=== PATIENT | male | born 1995 | race Caucasian/White ===

== ENCOUNTER 2018-04-21 07:58 | Observation (INO) | payer SELFPAY ==
--- NOTE | 2018-04-21 09:23 | ED ---
GI/ HPI - HPI Summary HPI Summary: Patient presents with bleeding during bowel movement 2 times this morning. He reports he woke with urgent lower abdominal pain and cramping and urgency to move his bowels. When he went to the bathroom, he had diarrhea with blood in the toilet, on the stool and as he wiped. He reports this was light in color. He had a second episode a few hours later of urgency but this time no stool emerged, just scant blood. He reports he had relief of his lower abdominal cramping both times with bowel movements and no focal rectal pain/pressure/ burning/tearing with either bowel movement. No trauma to the area (ie. denies sexual activity or other injuries to area). Denies fever, chills, nausea, vomiting, dysuria, flank pain, testicular pain or swelling. He does struggle with "heart burn", sometimes to the point of vomiting - reports this is worse when he eats [employer], pizza and when he smokes weed. When asked if he's eaten anything different or possibly undercooked, etc he replies "I ate a lot of pizza last night". Also admits he's been struggling with dental pain and per nursing, he stated taking 4,000mg of ASA for past few weeks to help w/ pain. Denies h/o diarrhea or abnormal bowel movements. No personal or fam hx of Crohn 's, UC, IBS, colon/gastric cancer. 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 Pain Intensity: 5 - Allergy/Home Medications Allergies/Adverse Reactions: Allergies Allergy/AdvReac Type Severity Reaction Status Date / Time Fish Containing Products Allergy Vomiting Verified 04/21/18 08:54 Home Medications: Home Medications Aspirin [Aspirin EC] 500 mg PO BID PRN 04/21/18 [History Confirmed 04/21/18] PMH/Surg Hx/FS Hx/Imm Hx Previously Healthy: Yes Endocrine/Hematology History: Denies: Hx Anticoagulant Therapy - large amounts of ASA , Hx Blood Disorders , Hx Unexplained Bleeding, Autoimmune Disease GI History: Reports: Hx Gastroesophageal Reflux Disease - untx'd Denies: Hx Cirrhosis, Hx Crohn's Disease, Hx Diverticulosis, Hx Gall Bladder Disease, Hx Gastrointestinal Bleed, Hx Hiatal Hernia, Hx Irritable Bowel, Hx Obstructive Bowel, Hx Ulcer Infectious Disease History: No Infectious Disease History: Denies: Traveled Outside the [place] in Last 30 Days - Family History Known Family History: Positive: None - Social History Occupation: Employed Full-time - just started new job last week Alcohol Use: Occasionally Substance Use Type: Reports: Marijuana Hx Tobacco Use: Yes Smoking Status (MU): Current Every Day Smoker Review of Systems Constitutional: Negative Negative: Fever, Chills, Fatigue Positive: Dental Pain Negative: Chest Pain Negative: Shortness Of Breath Gastrointestinal: Other - no pain or nausea currently Genitourinary: Negative Musculoskeletal: Negative Skin: Negative Neurological: Negative Negative: Headache Psychological: Normal All Other Systems Reviewed And Are Negative: Yes Physical Exam Triage Information Reviewed: Yes Vital Signs On Initial Exam: Initial Vitals Temp Pulse Resp BP Pulse Ox 98.8 F 85 16 127/68 99 04/21/18 07:59 04/21/18 07:59 04/21/18 07:59 04/21/18 07:59 04/21/18 07:59 Vital Signs Reviewed: Yes Appearance: Positive: Well-Appearing, No Pain Distress, Well-Nourished Skin: Positive: Warm, Skin Color Reflects Adequate Perfusion, Dry - no ecchymosis Head/Face: Positive: Other - appears to be s/p cleft palate repair Eyes: Positive: Normal, EOMI, Conjunctiva Clear - anicteric sclera ENT: Positive: Normal ENT inspection, Hearing grossly normal. Negative: Pharynx normal - appears to have erythematous marbling along palate - no cj edema/lesions, Nasal congestion Neck: Positive: Supple, Nontender, No Lymphadenopathy Respiratory/Lung Sounds: Positive: Clear to Auscultation, Breath Sounds Present Cardiovascular: Positive: Normal, RRR Abdomen Description: Positive: Nontender, No Organomegaly, Soft, Other: - rectal exam: external - no hemorrhoids or blood visualized; internal - 2 flecks of stools - no melena or blood observed - NTTP Bowel Sounds: Positive: Present Musculoskeletal: Positive: Normal, Strength/ROM Intact Neurological: Positive: Normal, Sensory/Motor Intact, Alert, Oriented to Person Place, Time, CN Intact II-III Psychiatric: Positive: Normal Diagnostics - Vital Signs Vital Signs Temp Pulse Resp BP Pulse Ox 04/21/18 08:54 82 100 04/21/18 08:53 76 136/90 100 04/21/18 07:59 98.8 F 85 16 127/68 99 - Laboratory Result Diagrams: 04/21/18 09:41 04/21/18 09:42 Lab Statement: Any lab studies that have been ordered have been reviewed, and results considered in the medical decision making process. GIGU Course/Dx - Course Course Of Treatment: CT: "There is focal wall thickening in the descending colon with contrast extending through the area of the wall thickening suspicious for an ulcerated mass possibly secondary to Crohn's colitis although nonspecific. Recommend colonoscopy for further evaluation" malignancy was also discussed as a possibility. Discussed w/ Dr. Calderon who agrees to consult on pt upon admission and perform colonoscopy tomorrow to better evaluate pt's findings as he's also concerned about IBD vs. malignancy. Labs and vitals are stable and unremarkable for inflammation (normal CRP, WBC and ESR). Pt is stable and comfortable at time of transition of care. - Diagnoses Provider Diagnoses: Colonic thickening, Hematochezia Discharge - Sign-Out/Discharge Documenting (check all that apply): Patient Departure - Discharge Plan Condition: Stable Disposition: ADMITTED TO [facility] - Billing Disposition and Condition Condition: STABLE Disposition: [facility]
[2018-04-21 09:51] LABS: ABS Basophils 0 10^3/ul (0-0.2); ABS Eosinophils 0.2 10^3/ul (0-0.6); ABS Lymphocytes 2.4 10^3/ul (1.0-4.8); ABS Monocytes 0.9 10^3/ul (0-0.8); ABS Neutrophils 7.3 10^3/ul (1.5-7.7); ABS Nucleated RBC 0 10^3/ul; Eosinophil % 1.5 % (0-6); Hematocrit 45 % (42-52); Hemoglobin 15.8 g/dl (14.0-18.0); Lymphocyte % 22.3 % (25-47); Mean Corpuscular HGB Conc 35 g/dl (31-36); Mean Corpuscular Hemoglobin 31 pg (27-31); Mean Corpuscular Volume 88 fL (80-94); Mean Platelet Volume 8.2 um3 (7.4-10.4); Nucleated Red Blood Cells % 0.1; Platelet Count 240 10^3/ul (150-450); Red Blood Count 5.13 10^6/ul (4.00-5.40); Red Cell Distribution Width 13 % (10.5-15); White Blood Count 10.8 10^3/ul (3.5-10.8)
[2018-04-21 10:09] LABS: EGFR Non-African American 110.7 (>60)
[2018-04-21 10:12] LABS: INR 1.07 (0.77-1.02)
[2018-04-21] MEDS ORDERED: Iohexol 300* (CONTRAST) 10 ML SDV IV ONE (10:36)
--- NOTE | 2018-04-21 12:34 | RAD ---
INDICATION: Lower abdominal pain with hematochezia. COMPARISON: There are no prior studies available for comparison. TECHNIQUE: A CT scan of the abdomen and pelvis was performed with intravenous and with oral contrast following intravenous injection of 72 ml of Omnipaque 300 nonionic contrast. Contiguous axial sections were obtained from the lung bases through the symphysis pubis. Images were reconstructed in the coronal and sagittal planes. FINDINGS: The lung bases are clear. No pleural effusion is present. The liver and spleen are within normal limits in size without significant focal abnormality. No calcified gallstones are seen. The pancreas appears to be within normal limits in size. The kidneys and adrenal glands are normal in size. No hydronephrosis is seen. There is a 1.4 x 1.7 cm cyst present in the midportion of the right kidney. The aorta is normal in caliber and demonstrates homogeneous contrast opacification. No significant enlarged retroperitoneal lymph nodes are seen. The stomach, small and large bowel appear nondistended. The appendix is within normal limits. There is a focal area of thickening of the wall of the distal portion of the descending colon with narrowing of the lumen and with extension of contrast through the thickened wall area raising the possibility of an ulcerated mass. No free intraperitoneal air or fluid is seen. No significant focal osseous abnormality is seen. The results of this exam were discussed with the referring clinician. IMPRESSION: THERE IS FOCAL WALL THICKENING IN THE DESCENDING COLON WITH CONTRAST EXTENDING THROUGH THE AREA OF WALL THICKENING SUSPICIOUS FOR AN ULCERATED MASS POSSIBLY SECONDARY TO CROHN'S COLITIS ALTHOUGH NONSPECIFIC. RECOMMEND COLONOSCOPY FOR FURTHER EVALUATION.
[2018-04-21] MEDS ORDERED: PEG 3000 GI LAVAGE* 1 GALLON PO ONE (15:15)
--- NOTE | 2018-04-21 15:55 | CONS ---
CONSULTATION REPORT: DATE OF CONSULT: 04/21/18 REQUESTING PHYSICIAN: ZOE Childers, in the emergency room. INDICATION: Abnormal finding on abdomen and pelvis CT. NARRATIVE: Mr. Hackett is a 22-year-old gentleman with no real past medical history. He does have some dental pain that he takes aspirin for and was feeling perfectly fine up until this morning. This morning, he developed generalized abdominal pain, it was colicky, it was fairly severe, brought him to the emergency room. Currently, he is pain free. He states that he feels wonderful right now. He denies any nausea, vomiting, fevers, chills. No unintentional weight loss. No change in his bowel habits. No diarrhea. No constipation. No blood in the stool. No family history of IBD or colorectal malignancies. He did have a CT abdomen and pelvis in the emergency room, which revealed focal wall thickening of the descending colon, Crohn's versus a mass. He again states that he feels perfectly fine right now. He is questioning whether or not he wants to go home. He does take aspirin for dental pain; this has been over the past few days. He again denies any blood in the stool. No unintentional weight loss. No family history of IBD or colorectal cancer. PAST MEDICAL HISTORY: None. PAST SURGICAL HISTORY: Include facial surgery for cleft palate. MEDICATIONS: On a regular basis, aspirin. ALLERGIES: To FISH-CONTAINING PRODUCTS. FAMILY HISTORY: No IBD, no colorectal cancer in the family. REVIEW OF SYSTEMS: Twelve systems were reviewed; other than that mentioned in the HPI were unremarkable. PHYSICAL EXAM: Temperature is 98.2, blood pressure is 134/85, pulse is 76, O2 sat is 98%. General: Well-appearing male, in no apparent distress. Alert, oriented, pleasant, fluent. HEENT: Pupils are equal, round, and reactive to light. Mucous membranes are moist without lesions, ulcers, or exudate. Neck is supple. Trachea is midline. Dentition is poor. Skin is warm and dry. Tattoo on his neck. Heart: Regular rate and rhythm. No murmurs, rubs, or gallops. Lungs: Clear to auscultation bilaterally. No wheezes, rales, or rhonchi. Abdomen: Positive bowel sounds. Soft, nontender, nondistended. No hepatosplenomegaly, masses, rebound, or guarding. Lymph: No supraclavicular or cervical lymphadenopathy. DIAGNOSTIC STUDIES/LAB DATA: Of note, white count was 10.8, hemoglobin 15.8, platelets are 240. ESR is 7. INR is 1.07. Sodium is 139, BUN 10, creatinine 0.85. LFTs are within normal limits. Sed rate is 7. INR is 1.07. CT, please see the HPI. ASSESSMENT AND PLAN: A 22-year-old male admitted with abdominal pain that is resolved. On a CT finding, it is suspicious for either an inflammatory mass versus malignancy. He really did not have any preceding symptoms, which would make me consider Crohn's or an IBD high in the differential. Given his age, malignancy is less likely, but not unheard of. I think at this point the patient does need a colonoscopy. I had a long discussion with the patient and his mother regarding this. He is slightly hesitant to stay and is asking what would happen if he did nothing about all this. I had a very long discussion with both of them regarding our concerns about what this potentially could be and what could happen in the future, especially catastrophe of something catastrophic if he does not address this. At this point, he is willing to stay. He should have clear liquid diet at this point. He should have 4 L of GoLYTELY, 3 L tonight, 1 L tomorrow morning. He should be n.p.o. after midnight. He will have a colonoscopy tomorrow. [id number]/[facility] #: [id number] MTDD
[2018-04-21] MEDS ORDERED: Mouth Piece, Nicotine* 1 EACH CARTRIDGE INH PRN (16:56)
[2018-04-21] MEDS: Nicotine Inhaler* 10 MG AMP INH PRN ×2 (17:10→19:45)
[2018-04-21] MEDS ORDERED: Acetaminophen TAB* 325 MG PO PRN (18:07)
--- NOTE | 2018-04-21 21:46 | HP ---
HISTORY AND PHYSICAL: DATE OF ADMISSION: 04/21/18 - ROOM #419 ADMITTING PROVIDER: Sanjeev Mcgee MD PRIMARY CARE PHYSICIAN: None. CHIEF COMPLAINT: Acute onset, 10/10 abdominal pain with diarrhea and blood. HISTORY OF PRESENT ILLNESS: Ajay Hackett is a 22-year-old male, current smoker 5- pack years who was in his usual state of health until morning of admission when he slowly developed 10/10 pain in his lower quadrants of his abdomen associated with diarrhea and then some blood in his stools, which he describes as "not a large amount." He denies past medical history. He denies fevers, chills, weight loss, nausea, vomiting. He had intermittent bloating sensation today. He has been taking approximately 3500 mg of aspirin for the last 2 days for a dental pain and what he thinks is a dental infection. He does not have any insurance. No PCP. He has not been able to see a dentist due to lack of insurance and financial contraints . In the emergency room, he had a CT of his abdomen and pelvis, which was concerning for focal wall thickening in the descending colon with contrast extending to the area of wall thickening suspicious for an ulcerated mass, possibly secondary to Crohn's colitis, although nonspecific and recommendation for colonoscopy. Dr. Calderon of GI was consulted by emergency room and he was referred to hospitalist service for admission. He is otherwise now without abdominal pain, stable with lab work that is not concerning. He has ESR of 7 and INR of 1.07. White count of 10.8, lipase of 13, normal LFTs. No lactic acidosis. He is afebrile. PAST MEDICAL HISTORY: Current smoker, 5-pack years, 1 pack per day; intermittent alcohol use of a small bottle of Woody Watson twice a month; marijuana use; history of cleft palate and lip repair as a . MEDICATIONS: Aspirin 500 mg, he has taken 7 over the last 2 days. ALLERGIES: He has allergies to FISH-CONTAINING PRODUCTS. SOCIAL HISTORY: The patient is 1 pack per day smoker. Alcohol use, socially 1 "smallest" bottle of Woody Watson twice a month. He smokes marijuana. His significant other, Harlan Barrientos, is requested to be his next of kin. He works at [employer]. He desires to be Full code. FAMILY HISTORY: His dad of a gunshot wound at age 41. His mother is alive , is a "pill addict" and may have cervical cancer. She is alive at age 41. PHYSICAL EXAMINATION GENERAL APPEARANCE: No acute distress. VITAL SIGNS: Temperature 98.5, pulse rate 91, respiratory rate 16, satting 99% , blood pressure 134/85. HEENT: Normocephalic, atraumatic. Pupils are equal, round, and reactive to light. Dentition quite poor. Extraocular motions are intact. NECK: No cervical lymphadenopathy. PULMONARY: Clear to auscultation bilaterally with no wheezing, rales, or rhonchi. CARDIOVASCULAR: Regular rate and rhythm. No murmurs, rubs, or gallops. ABDOMEN: Soft, nontender, nondistended. No rebound. No guarding. EXTREMITIES: Warm, well perfused. No peripheral edema. SKIN: No lesions. No rashes. DIAGNOSTIC STUDIES/LAB DATA: White count 10.8, hemoglobin 15.8, hematocrit 45 , platelets 240. ESR 7. INR 1.07. Sodium 139, potassium 3.8, chloride 106, carbon dioxide 26, BUN 10, creatinine 0.85, glucose 95, magnesium 2.0. Total bili is 0.30, AST 15, ALT 9, alk phos 61. CRP 1.44, albumin 4.4, lipase 13. CT abdomen and pelvis with impression of just focal wall thickening of the descending colon with contrast extending to the area of wall thickening suspicious for an ulcerated mass, possibly secondary to Crohn's colitis, although nonspecific, recommended colonoscopy for further evaluation. ASSESSMENT AND PLAN: Ajay Hackett is a 22-year-old male, current smoker and taking large doses of aspirin over the last 2 days up to 3.5 g daily. We appreciate the consultation services of Dr. Calderon. We are prepping him for a colonoscopy tomorrow with concerns to rule out Crohn's colitis or other malignancy. Of note his significant other had to convince him to stay for admission. No known familial history of colon cancer, but he does not have firm grasp on her mother's past medical history given her drug addiction and father at age 41 of a gunshot wound. Notably, I am going to add a salicylate level given his recent large doses of aspirin, which can result in some diarrhea. His lab work is otherwise stable with some slight coagulopathy with INR of 1.07. We will try to control his dental pain with tramadol in the interim. He is getting 2 L of GoLYTELY now. He can eat a clear liquid diet until midnight n.p.o. and another 1 L of GoLYTELY in the morning. He desires to be a full code. Medical surrogate is next of kin, who is his girlfriend, Harlan Barrientos. He is being admitted to observation status. We will put him on telemetry given the GI bleed. [id number]/[facility] #: [id number] LESTER
[2018-04-22] MEDS ORDERED: PEG 3000 GI LAVAGE* 1 GALLON PO ONE (06:00)
[2018-04-22 06:56] LABS: ABS Basophils 0 10^3/ul (0-0.2); ABS Eosinophils 0.2 10^3/ul (0-0.6); ABS Lymphocytes 2.6 10^3/ul (1.0-4.8); ABS Monocytes 1.1 10^3/ul (0-0.8); ABS Neutrophils 9.1 10^3/ul (1.5-7.7); ABS Nucleated RBC 0 10^3/ul; Eosinophil % 1.3 % (0-6); Hematocrit 46 % (42-52); Hemoglobin 15.8 g/dl (14.0-18.0); Lymphocyte % 19.6 % (25-47); Mean Corpuscular HGB Conc 34 g/dl (31-36); Mean Corpuscular Hemoglobin 31 pg (27-31); Mean Corpuscular Volume 89 fL (80-94); Mean Platelet Volume 8.1 um3 (7.4-10.4); Nucleated Red Blood Cells % 0.1; Platelet Count 277 10^3/ul (150-450); Red Blood Count 5.18 10^6/ul (4.00-5.40); Red Cell Distribution Width 13 % (10.5-15)
[2018-04-22] MEDS: Nicotine Inhaler* 10 MG AMP INH PRN (07:36)
--- NOTE | 2018-04-22 09:26 | PN ---
Subjective Date of Service: 04/22/18 Interval History: No more abdominal pain. Clear stools not pink or red after prep. Objective Active Medications: Acetaminophen (Tylenol Tab*) 650 mg PO Q6H PRN PRN Reason: FEVER/PAIN Last Admin: 04/22/18 07:40 Dose: 650 mg Device (Nicotine Mouth Piece*) 1 each INH .USE WITH NICOTROL PRN PRN Reason: CRAVING Last Admin: 04/21/18 17:10 Dose: 1 each Nicotine (Nicotine Inhaler*) 10 mg INH Q2H PRN PRN Reason: CRAVING Last Admin: 04/22/18 07:36 Dose: 10 mg Vital Signs - 8 hr 04/22/18 04/22/18 03:06 07:35 Temperature 98.4 F 98.3 F Pulse Rate 68 85 Respiratory 16 16 Rate Blood Pressure 124/70 125/60 (mmHg) O2 Sat by Pulse 100 99 Oximetry Oxygen Devices in Use Now: None Appearance: Alert, sitting on the edge of his bed. In good spirits. Looks comfortable. Eyes: No Scleral Icterus Abdominal: NL Sounds; No Tenderness; No Distention, No Hepatosplenomegaly, - Extremities: No Edema, No Clubbing, Cyanosis, - Skin: No Rash or Ulcers, No Nodules or Sclerosis, - Neurological: Alert and Oriented x 3, NL Sensation Result Diagrams: 04/22/18 06:34 04/21/18 09:42 Microbiology and Other Data: Microbiology 04/21/18 18:15 Stool Gross Appearance - Final Stool C. difficile DNA Amplification - Final 027 Presumptive NEGATIVE Toxigenic C.diff NEGATIVE Stool Lactoferrin - Final 04/21/18 09:20 Stool Occult Blood (KERI) - Final Stool Assess/Plan/Problems-Billing Assessment: - Patient Problems (1) Abdominal pain Current Visit: Yes Status: Acute Code(s): R10.9 - UNSPECIFIED ABDOMINAL PAIN SNOMED Code(s): 26859992 Comment: Colonoscopy (2) Tobacco abuse Current Visit: Yes Status: Acute Code(s): Z72.0 - TOBACCO USE SNOMED Code( s): 896765213 Comment: Pt advised to quit smoking and avoid second hand smoke.
[2018-04-22] MEDS ORDERED: fentaNYL* 50 MCG/ML 2 ML VIAL (100 MCG VIAL) ONE (09:44)
[2018-04-22] MEDS ORDERED: Midazolam* 1 MG/ML 10 ML VIAL (10 MG) ONE (09:44)
[2018-04-22 11:30] VITALS: BP 101/50
[2018-04-22] MEDS ORDERED: Amoxicillin/Clavulanate TAB* 875 MG PO SCH (12:00)
--- NOTE | 2018-04-22 16:16 | PRO ---
DATE: 04/22/18 - ROOM #419 REFERRING PHYSICIAN: Minh Hobson * PROCEDURE: Colonoscopy and ileoscopy with biopsy of multiple left colon segments. INDICATION: This 22-year-old man with no previous GI history awakened at 4 a.m. with severe abdominal pain and promptly passed a loose stool with some blood in it. He had another passage at home and then came to the ER where he had a couple of more. The pain was severe. He did not have a fever and his white count initially was 10. His pain settled down and overnight he did tolerate the Colyte prep. Today, his white count is 13, but he says he is quite comfortable. His sed rate and CRP were quite normal. He does smoke marijuana and some tobacco. He has been taking a fair amount of aspirin for dental pain. Informed consent was obtained with a detailed description of possible colitis or polyps. ENDOSCOPIST: Neil Parson MD MEDICATIONS: Midazolam 9, fentanyl 75. FINDINGS: He is a short-statured man in no distress, 5 feet 2 inches, 120 pounds. His abdomen is flat, symmetric with normal bowel sounds and it is firm, but without focal tenderness. Perianal inspection and the rectal are normal with average tone for age. Initial views with a pediatric scope show an excellent prep and normal mucosa. Mucosa in the rectum, rectosigmoid, and distal sigmoid is normal. In the mid sigmoid, some erythema and minimal granularity is seen on the surface of haustral markings. This increases but is never associated with any purplish sign or ulceration. Edema is minimal. These changes continue for about 20 to 25 cm and then attenuate, and by the splenic flexure, it seemed to be absent. In the involved area, significant patches of colon appear normal. The transverse, right colon, and cecum are normal. The ileocecal valve and 25 cm of terminal ileum are normal. During slow withdrawal, random biopsies were taken in the transverse from normal- appearing mucosa and then the splenic where there is some minimal erythema and finally descending, upper sigmoid, and rectosigmoid with the latter again from normal-appearing mucosa. IMPRESSION: Segmental colitis, left colon - visually and per history quite suggestive of a mild ischemic event. It would seem more likely this is due to an idiopathic vascular spasm events, possibly pharmacologically induced or idiopathic self-limited events. A hypercoagulable situation is less likely. He has no sign of systemic vasculitis. At this moment, this is mild and conservative care is indicated. Addendum: Bx 5 sites - third mild ischemic changes ; no microscopic colitis any site [id number]/[facility] #: [id number] GARNET HEALTHJose
--- NOTE | 2018-04-22 16:49 | DS ---
DISCHARGE SUMMARY: DATE OF ADMISSION: DATE OF DISCHARGE: 04/22/18 HOSPITAL COURSE: This 22-year-old man presented with abdominal pain and blood per rectum on the morning of admission. He had never had a problem before. He has been in good health until that day. CT scan showed question of mass and/or ulceration and noted CRP was 1. White count did go up to 13.0 on the morning of discharge. He remained afebrile. Clinically, he was quite well. His abdominal pain and bleeding resolved completely by the morning of discharge. He was given a colonoscopy prep. On colonoscopy, he had mild ischemic colitis. An EH and a lupus anticoagulant are being added on to the labs drawn on his blood. He is being assigned a primary care physician and given an appointment to that provider. FINAL DIAGNOSES: 1. Ischemic colitis. 2. Tobacco use disorder. DISCHARGE MEDICATIONS: 1. Acetaminophen 650 mg every 6 hours p.r.n. 2. Aspirin 500 mg t.i.d. p.r.n. not to exceed 6 tablets per day. [id number]/[facility] #: [id number] LESTER
== END 2018-04-22 12:00 | disposition home or self-care (01) ==
LOC: ED 07:58 → MED 15:00
PROVIDERS: ADMIT Internal Medicine; ATTEND Internal Medicine
DX: K55.9 Vascular disorder of intestine, unspecified (principal); R10.9 Unspecified abdominal pain; F17.210 Nicotine dependence, cigarettes, uncomplicated; Z79.82 Long term (current) use of aspirin; K08.89 Other specified disorders of teeth and supporting structures; R19.7 Diarrhea, unspecified
CPT/HCPCS: 36415; 74177; 80053; 80329; 82272; 83605; 83630; 83690; 83735; 85025; 85610; 85652; 85730; 86038; 86140; 86850; 86900; 86901; 87045; 87046; 87077; 87493; 87899; 88305; 99156; 99157; 99283; A9270-GY; G0378; G0480; J2250; J3010; Q9967